=== PATIENT | male | born 1955 | race Caucasian/White ===

== ENCOUNTER 2017-09-26 16:43 | Emergency (ER) | payer BC, MEDICAID ==
[2017-09-26 18:47] LABS: CHLORIDE,CL 102 mmol/L (101-111); SODIUM,NA 136 mmol/L (135-145)
--- NOTE | 2017-09-26 18:55 | EDM.PDOC ---
Scribed by Karla Ruiz 09/26/17 [id number] for Davide Macias PA <Davide Macias - Last Filed: 09/26/17 18:55> ED HPI GENERAL MEDICAL PROBLEM - General Chief Complaint: Neck Problem Stated Complaint: [id number] SORE THROAT Time Seen by Provider: 09/26/17 17:30 Source of Information: Reports: Patient, RN, RN Notes Reviewed History Limitations: Reports: No Limitations - History of Present Illness INITIAL COMMENTS - FREE TEXT/NARRATIVE: Patient presents with neck pain which started on Monday. Patient has been taking aspirin. Patient has been seeing a chiropractor. Patient from [place] here in the area [facility]. Onset Date: 09/22/17 Duration: Getting Worse Location: Reports: Neck Quality: Reports: Ache Severity: Moderate Improves with: Reports: None Worsens with: Reports: None Associated Symptoms: Reports: No Other Symptoms Middle Throat Pain Score (Numeric/FACES): 7 - Related Data Allergies Allergy/AdvReac Type Severity Reaction Status Date / Time No Known Allergies Allergy Verified 09/26/17 17:55 Past Medical History Cardiovascular History: Reports: Hypertension Social & Family History - Tobacco Use Smoking Status *Q: Former Smoker Used Tobacco, but Quit: Yes Month/Year Tobacco Last Used: 2007 - Alcohol Use Days Per Week of Alcohol Use: 7 Number of Drinks Per Day: 2 Total Drinks Per Week: 14 - Recreational Drug Use Recreational Drug Use: No ED ROS GENERAL - Review of Systems Review Of Systems: ROS reveals no pertinent complaints other than HPI. ED EXAM, UPPER BACK/NECK PAIN - Physical Exam Exam: See Below Exam Limited By: No Limitations General Appearance: Alert, WD/WN, No Apparent Distress Eye Exam: Bilateral Eye: Normal Inspection Ears Exam: Normal External Exam, Normal Canal, Hearing Grossly Normal, Normal TMs Nose Exam: Normal Inspection, Normal Mucousa, No Blood Throat/Mouth Exam: Normal Inspection, Normal Lips, Normal Teeth, Normal Gums, Normal Oropharynx, Normal Voice, No Airway Compromise Head Exam: Atraumatic, Normocephalic Neck Exam: Other (posteriorneck pain. 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 As Tested, No Motor/Sensory Deficits, Alert, Normal Mood/Affect, Oriented x 3 Psychiatric: Normal Affect, Normal Mood Skin Exam: Normal Color, Warm/Dry Lymphatic: Other (cervical lymphadenopathy) Course - Vital Signs Last Recorded V/S: Last Vital Signs Temp 99.0 F 09/26/17 22:34 Pulse 63 09/26/17 22:34 Resp 18 09/26/17 22:34 BP 142/77 H 09/26/17 22:34 Pulse Ox 97 09/26/17 22:34 - Orders/Labs/Meds Orders: Active Orders 24 hr Category Date Time Status CSF LACTIC Stat Lab 09/26/17 19:50 Received CULTURE BLOOD [BC] Stat Lab 09/26/17 18:15 Received CULTURE BLOOD [BC] Stat Lab 09/26/17 18:20 Received CULTURE CSF + SMEAR [RM] Stat Lab 09/26/17 19:50 Results CULTURE STREP A CONFIRMATION [RM] Stat Lab 09/26/17 17:19 Results MUMPS ANTIBODIES, IGM [REF] DAILY Lab 09/26/17 18:15 Received STREP SCRN A RAPID W CULT CONF [RM] Stat Lab 09/26/17 17:19 Results WEST NILE VIRUS IGM [REF] Stat Lab 09/26/17 18:15 Received Blood Culture x2 Reflex Set [OM.PC] Stat Oth 09/26/17 17:52 Ordered Labs: Laboratory Tests 09/26/17 09/26/17 09/26/17 Range/Units 18:15 18:15 18:15 WBC 9.7 (5.0-10.0) 10^3/uL RBC 4.76 (4.6-6.2) 10^6/uL Hgb 14.6 (14.0-18.0) g/dL Hct 41.9 (40.0-54.0) % MCV 88.0 (80-100) fL MCH 30.7 (27.0-34.0) pg MCHC 34.8 (33.0-35.0) g/dL Plt Count 158 (150-450) 10^3/uL Neut % (Auto) 68.6 (42.2-75.2) % Lymph % (Auto) 18.1 L (20.5-50.1) % Craig % (Auto) 12.0 H (2-8) % Eos % (Auto) 1.0 (1.0-3.0) % Baso % (Auto) 0.3 (0.0-1.0) % Sodium 136 (135-145) mmol/L Potassium 3.9 (3.6-5.0) mmol/L Chloride 102 (101-111) mmol/L Carbon Dioxide 27.0 (21.0-31.0) mmol/L Anion Gap 10.9 BUN 15 (7-18) mg/dL Creatinine 0.8 (0.6-1.3) mg/dL Est Cr Clr Drug Dosing 96.32 mL/min Estimated GFR (MDRD) > 60 BUN/Creatinine Ratio 18.75 Glucose 115 H (74-105) mg/dL Lactic Acid 1.1 (0.5-2.2) mmol/L Calcium 9.1 (8.4-10.2) mg/dl Total Bilirubin 1.0 (0.2-1.0) mg/dL AST 16 (10-42) IU/L ALT 23 (10-60) IU/L Alkaline Phosphatase 40 L (42-121) IU/L Total Protein 7.3 (6.7-8.2) g/dl Albumin 4.3 (3.2-5.5) g/dl Globulin 3.0 Albumin/Globulin Ratio 1.43 CSF Tube Number CSF Volume CSF Appearance CSF Color CSF Supernatant Appear CSF WBC CSF RBC CSF Glucose (40-70) mg/dL CSF Total Protein (15.0-45.0) mg/dL 09/26/17 09/26/17 Range/Units 19:50 19:50 WBC (5.0-10.0) 10^3/uL RBC (4.6-6.2) 10^6/uL Hgb (14.0-18.0) g/dL Hct (40.0-54.0) % MCV (80-100) fL MCH (27.0-34.0) pg MCHC (33.0-35.0) g/dL Plt Count (150-450) 10^3/uL Neut % (Auto) (42.2-75.2) % Lymph % (Auto) (20.5-50.1) % Craig % (Auto) (2-8) % Eos % (Auto) (1.0-3.0) % Baso % (Auto) (0.0-1.0) % Sodium (135-145) mmol/L Potassium (3.6-5.0) mmol/L Chloride (101-111) mmol/L Carbon Dioxide (21.0-31.0) mmol/L Anion Gap BUN (7-18) mg/dL Creatinine (0.6-1.3) mg/dL Est Cr Clr Drug Dosing mL/min Estimated GFR (MDRD) BUN/Creatinine Ratio Glucose (74-105) mg/dL Lactic Acid (0.5-2.2) mmol/L Calcium (8.4-10.2) mg/dl Total Bilirubin (0.2-1.0) mg/dL AST (10-42) IU/L ALT (10-60) IU/L Alkaline Phosphatase (42-121) IU/L Total Protein (6.7-8.2) g/dl Albumin (3.2-5.5) g/dl Globulin Albumin/Globulin Ratio CSF Tube Number 2 CSF Volume 6 CSF Appearance Clear CSF Color Colorless CSF Supernatant Appear No xanthochromia CSF WBC 5 CSF RBC 9 CSF Glucose 74 H (40-70) mg/dL CSF Total Protein 34.0 (15.0-45.0) mg/dL Meds: Medications Discontinued Medications Generic Name Dose Route Start Last Admin Trade Name Rickieq PRN Reason Stop Dose Admin Dexamethasone 4 mg 09/26/17 22:26 09/26/17 22:32 Dexamethasone IVPUSH 09/26/17 22:27 4 mg ONETIME ONE Administration Sodium Chloride 1,000 mls @ 999 mls/hr 09/26/17 20:22 09/26/17 20:47 Normal Saline IV 09/26/17 21:22 999 mls/hr .BOLUS ONE Administration Iopamidol 75 ml 09/26/17 20:14 09/26/17 20:51 Isovue-300 (61%) IVPUSH 09/26/17 20:15 75 ml ONETIME ONE Administration Departure - Departure Disposition: DC/[facility]fer to [facility] 02 Clinical Impression: Angio-edema Qualifiers: Encounter type: initial encounter Qualified Code(s): T78.3XXA - Angioneurotic edema, initial encounter - Discharge Information Referrals: PCP,None [Primary Care Provider] - Forms: ED Department Discharge - My Orders Last 24 Hours: My Active Orders 09/26/17 18:15 MUMPS ANTIBODIES, IGM [REF] DAILY - Assessment/Plan Last 24 Hours: My Active Orders 09/26/17 18:15 MUMPS ANTIBODIES, IGM [REF] DAILY <Renetta Fabian - Last Filed: 09/26/17 22:55> Departure - Departure Time of Disposition: 22:52 Condition: Undetermined I have read and agree with the documentation that has been completed regarding this visit. By signing this record, I attest that the documentation was completed in my physical presence and is an accurate record of the encounter.
--- NOTE | 2017-09-26 20:12 | PCM.SN ---
- Free Text/Narrative Note: Anesthesia. Pt w c/o neck stiffness. ED provider requesting diagnostic spinal tap. Consent obtained from Pt after explanation of risks and benefits. Pt in R lateral position. Sterile prep and drape. 1% lidocaine for skinwheal to L3 L4 interspace. Introducer, 24 Ga Sprotte x 1. Pos CSF, neg heme, neg parasthesia. pressure at 20. 12 ml of clear CSF obtained and sent to lab. Sprotte removed and site covered w bandaid. Pt tolerated well. Procedure time 1914 to 2019
[2017-09-26] MEDS ORDERED: Iopamidol 612 MG/ML 75 ML Bottle IVPUSH ONE (20:14)
[2017-09-26] MEDS ORDERED: Sodium Chloride 0.9% 1,000 ML IV ONE (20:22)
[2017-09-26] MEDS ORDERED: Dexamethasone 4 MG/ML SDV IVPUSH ONE (22:26)
== END 2017-09-26 23:42 ==
LOC: DL.ED 16:43
DX: T78.3XXA Angioneurotic edema, initial encounter (principal); I10 Essential (primary) hypertension; Z87.891 Personal history of nicotine dependence
CPT/HCPCS: 36415; 70491; 80053; 82945; 83605; 84157; 85025; 86735; 86788; 87040; 87070; 87081; 87205; 87430; 89050; 99285; J1100; J7030; Q9967; 62270